=== PATIENT | male | born 1970 | race African-American/Black ===

== ENCOUNTER 2022-03-28 21:46 | Emergency (ER) | payer SELFPAY ==
[2022-03-29] MEDS ORDERED: Ibuprofen 800 MG TAB ONE (00:20)
== END 2022-03-29 00:20 | disposition home or self-care (01) ==
LOC: NAV ERS 21:46
DX: M25.512 Pain in left shoulder (principal); R07.9 Chest pain, unspecified
CPT/HCPCS: 71046